=== PATIENT | female | born 1975 | race Caucasian/White ===

== ENCOUNTER 2017-12-19 14:07 | Emergency (ER) | payer OTHER ==
[~2017-12-19] VITALS: Ht 170.2 cm; Wt 69.8 kg
[~2017-12-19 14:07] MED LIST: SULF1TAB47
[2017-12-19 14:11] VITALS: BP 111/61; PULSE 105; RESP 18; TEMP 98.7; O2SAT 100
--- NOTE | 2017-12-19 14:35 | PD ---
HPI Chief Complaint: Cold / Flu Symptoms Time Seen by Provider: 14:19 Travel History International Travel<30 days: No Contact w/Intl Traveler<30days: No Traveled to known affect area: No History of Present Illness HPI 42-year-old female presents to the ED for evaluation of 6 day history of cough, occasionally productive of green mucus. Patient endorses sore throat and mild nausea. Patient denies fever or chills, sinus congestion, runny nose, ear pain , vomiting. She states both her daughters tested positive for influenza B. She has been taking Tamiflu with no improvement of symptoms. She is a non- smoker. She did not receive this years flu vaccine. 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 Tessalon Perles (Benzonatate) 100 Mg Cap 200 Mg PO TID PRN Reported Tri-Linyah (Norgestimate-Ethinyl Estradiol) 0.18/0.215/0.25 mg-35 Mcg Tab 1 Tab PO DAILY Probiotic (Lactobacillus Acidophilus) 10 Billion Cell Cap 1 Cap PO TIDAC Robitussin Childrens Cough Liq (Dextromethorphan HBr) 7.5 Mg/5 Ml Syp 10 Ml PO Q6H PRN Review of Systems Except as stated in HPI: all other systems reviewed are Neg Physical Exam Narrative GENERAL: Well-nourished, well-developed white female in no acute distress. SKIN: Warm and dry. HEAD: Normocephalic. Atraumatic. EYES: No scleral icterus. No injection or drainage. PERRLA. EOMI. ENT: Pearly brand tympanic membranes bilaterally. Nasal mucosa is moist. Oropharynx with very mild posterior erythema. No edema or exudate. NECK: Supple, trachea midline. No JVD or lymphadenopathy. CARDIOVASCULAR: Regular rate and rhythm without murmurs, gallops, or rubs. RESPIRATORY: Breath sounds clear and equal bilaterally. No accessory muscle use. GASTROINTESTINAL: Abdomen soft, non-tender, nondistended. + Bowel sounds MUSCULOSKELETAL: No cyanosis, or edema. BACK: Nontender without obvious deformity. No CVA tenderness. Data Data Last Documented VS Vital Signs Date Time Temp Pulse Resp B/P (MAP) Pulse Ox O2 Delivery O2 Flow Rate FiO2 12/19/17 14:25 Room Air 12/19/17 14:11 98.7 105 18 111/61 (78) 100 Orders Orders Chest, Single Ap (12/19/17 14:29) MDM Medical Decision Making Medical Screen Exam Complete: Yes Emergency Medical Condition: Yes Differential Diagnosis Upper airway cough syndrome versus influenza versus viral syndrome versus upper respiratory infection versus other Narrative Course 42-year-old female presents to the ED for evaluation of 6 day history of cough, occasionally productive of green mucus. Patient endorses sore throat and mild nausea. Patient denies fever or chills, sinus congestion, runny nose, ear pain , vomiting. She states both her daughters tested positive for influenza B. She has been taking Tamiflu with no improvement of symptoms. She is a non- smoker. Patient is afebrile on presentation. On exam there is mild posterior exudate. Chest x-ray reveals no evidence of pneumonia by my read. We will treat for upper respiratory infection. Patient's prescribed azithromycin, Tessalon Perles, few doses of codeine cough syrup. She is instructed to follow- up with her primary care provider. She is agreeable with the plan. She stable and discharged home. Diagnosis Primary Impression: Upper respiratory infection Qualified Codes: J06.9 - Acute upper respiratory infection, unspecified Referrals: Primary Care Physician Additional Instructions: Rest, hydrate. Begin antibiotics today and take them until every pill is gone. Tessalon Perles every 8 hours to reduce the urge to cough. Codeine cough syrup at bedtime to reduce cough. Follow with the primary care provider. Return to the ED for any urgent or emergent medical condition. Med/Other Pt SpecificInfo: Prescription(s) given Scripts Nhdbfhmsxcigzmc-Vzdyxqr-Vctpcbizttw Liq (Coditussin DAC Liq) 30-10-200 Mg/5ML Liqd 5 ML PO HS Y for COUGH AND/OR COLD SYMPTOMS for 5 Days, #60 ML 0 Refills Prov: Austin Willis MD 12/19/17 Azithromycin (Azithromycin) 250 Mg Tab 250 MG PO DIRECTED for Infection, #6 TAB 0 Refills Take 2 tabs (500 mg) on day 1 then 1 tab daily x 4 days. Prov: Austin Willis MD 12/19/17 Benzonatate (Tessalon Perles) 100 Mg Cap 200 MG PO TID Y for COUGH, #20 CAP 0 Refills Prov: Austin Willis MD 12/19/17 Disposition: 01 DISCHARGE HOME Condition: Stable Shu Blankenship Dec 19, 2017 14:35
[2017-12-19] MEDS ORDERED: PSEU1LIQ20 PO (14:37)
[2017-12-19] MEDS ORDERED: BENZ100 PO (14:37)
[2017-12-19] MEDS ORDERED: AZIT250T3 PO (14:37)
[2017-12-19] MEDS ORDERED: ROBI7.5S PO (14:43)
[2017-12-19] MEDS ORDERED: NORGTAB PO (14:43)
[2017-12-19] MEDS ORDERED: LACTCAP8 PO (14:43)
--- NOTE | 2017-12-19 14:56 | RADRPT ---
EXAM DATE/TIME: 12/19/2017 14:37 [facility] COMPARISON: No previous studies available for comparison. INDICATIONS : Flu like symptoms. Cough, congestion and chest pain for 5 days. MEDICAL HISTORY : None. SURGICAL HISTORY : None. ENCOUNTER: Initial ACUITY: 4 - 6 days PAIN SCORE: 5/10 LOCATION: Bilateral chest FINDINGS: A single view of the chest demonstrates the lungs to be symmetrically aerated without evidence of mas s, infiltrate or effusion. The cardiomediastinal contours are unremarkable. Osseous structures are intact. CONCLUSION: No evidence of acute cardiopulmonary disease. Richard Lopez MD on December 19, 2017 at 14:54 Board Certified Radiologist. This report was verified electronically.
== END 2017-12-19 14:56 | disposition home or self-care (01) ==
LOC: PHEFT 14:07
DX: J06.9 Acute upper respiratory infection, unspecified (principal); R11.0 Nausea
CPT/HCPCS: 71045; 99283